=== PATIENT | male | born 1975 | race Asian ===

== ENCOUNTER 2017-08-21 12:09 | Emergency (ER) | payer MEDICAID, OTHER ==
[~2017-08-21] VITALS: Ht 177.8 cm; Wt 118.2 kg
[~2017-08-21 12:09] MED LIST: NOCURR
[2017-08-21] MEDS ORDERED: IBUPROFEN 800 MG TABLET PO ONE (13:30)
[2017-08-21 13:45] VITALS: BP 142/95
[2017-08-21] MEDS ORDERED: LIDOCAINE HCL 1% 10 ML VIAL INJ ONE (13:45)
[2017-08-21] MEDS ORDERED: POVIDONE-IODINE 10% 15 ML SOLUTION UD TP ONE (13:45)
== END 2017-08-21 14:43 | disposition home or self-care (01) ==
LOC: EMS 12:11
DX: T63.301A Toxic effect of unspecified spider venom, accidental (unintentional), initial encounter (principal); L02.212 Cutaneous abscess of back [any part, except buttock and flank]; F17.210 Nicotine dependence, cigarettes, uncomplicated; Z90.49 Acquired absence of other specified parts of digestive tract; Y92.89 Other specified places as the place of occurrence of the external cause
CPT/HCPCS: 10060; 99284; J3490

== ENCOUNTER 2020-04-11 14:22 | Emergency (ER) | payer OTHER ==
[~2020-04-11] VITALS: Ht 177.8 cm; Wt 115.9 kg
[2020-04-11 14:27] VITALS: BP 140/91
== END 2020-04-11 15:45 | disposition left against medical advice (07) ==
LOC: EMS 14:26
DX: H57.89 Other specified disorders of eye and adnexa (principal); Z53.21 Procedure and treatment not carried out due to patient leaving prior to being seen by health care provider